=== PATIENT | female | born 1995 | race Caucasian/White ===

== ENCOUNTER 2018-01-09 16:39 | Emergency (ER) | payer OTHER ==
[2018-01-09 17:21] VITALS: BMI 24.9
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
[2018-01-09 17:32] LABS: URINE APPEARANCE CLEAR; URINE BILIRUBIN NEGATIVE (<2.0 mg/dL); URINE COLOR LTYELLOW; URINE GLUCOSE (UA) NEGATIVE (NEGATIVE); URINE KETONE NEGATIVE (NEGATIVE); URINE NITRITE NEGATIVE (NEGATIVE); URINE PROTEIN NEGATIVE (NEGATIVE); URINE UROBILINOGEN NEGATIVE mg/dL (0.2-1.0)
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
[2018-01-09 17:46] LABS: URINE LEUK ESTERASE 1+ (NEGATIVE)
[2018-01-09 17:57] LABS: EPI CELLS FEW /HPF (FEW)
[2018-01-09 18:31] VITALS: BP 106/63; PULSE 80; TEMP 98.3
== END 2018-01-09 20:39 | disposition home or self-care (01) ==
LOC: JER 16:39
DX: O26.893 Other specified pregnancy related conditions, third trimester (principal); M54.5 Low back pain; M79.604 Pain in right leg; M10.30 Gout due to renal impairment, unspecified site; V43.52XA Car driver injured in collision with other type car in traffic accident, initial encounter; Y92.488 Other paved roadways as the place of occurrence of the external cause; Y93.89 Activity, other specified; Y99.8 Other external cause status; Z3A.29 29 weeks gestation of pregnancy
CPT/HCPCS: 76801-TC; 81003; 81015; 87086; 99281-25